=== PATIENT | male | born 1950 | race Caucasian/White ===

== ENCOUNTER → 2017-08-18 | Outpatient (CLI) | payer MEDICARE, BC | LOC: COL.VAS 11:50 | DX: Z01.818 Encounter for other preprocedural examination (principal); N18.4 Chronic kidney disease, stage 4 (severe) | CPT/HCPCS: G0365 ==

== ENCOUNTER → 2018-03-09 | Outpatient (CLI) | payer MEDICARE, BC | LOC: COL.VAS 08:39 | DX: Z01.818 Encounter for other preprocedural examination (principal); N18.5 Chronic kidney disease, stage 5; I34.0 Nonrheumatic mitral (valve) insufficiency ==

== ENCOUNTER → 2018-08-20 | Outpatient (CLI) | payer MEDICARE, BC | LOC: COL.VAS 09:01 | DX: Z01.810 Encounter for preprocedural cardiovascular examination (principal); N18.6 End stage renal disease; I34.0 Nonrheumatic mitral (valve) insufficiency ==

== ENCOUNTER → 2018-10-16 | Outpatient (CLI) | payer MEDICARE, BC ==
[2018-10-16 14:03] LABS: PH 6 (5-8); SQUAMOUS EPITHELIAL 0-2 /hpf; URINE APPEARANCE Clear; URINE BACTERIA Rare /hpf; URINE BILIRUBIN Negative (NEGATIVE); URINE BLOOD 1+ (NEGATIVE); URINE COLOR Straw; URINE GLUCOSE Negative (NEGATIVE); URINE KETONE Negative (NEGATIVE); URINE LEUKOCYTE ESTERASE Negative (NEGATIVE); URINE NITRATE Negative (NEGATIVE); URINE PROTEIN(semi-quant) 2+ (NEGATIVE); URINE RBC 0-2 /hpf; URINE UROBILINOGEN Negative (NEGATIVE); URINE WBC 0-2 /hpf
[2018-10-16 14:16] LABS: COLLECTION METHOD CLEAN CATCH
== END ==
LOC: COL.RAD 13:31
PROVIDERS: Internal Medicine Nephrology
DX: Q61.2 Polycystic kidney, adult type (principal); N18.4 Chronic kidney disease, stage 4 (severe); K66.8 Other specified disorders of peritoneum

== ENCOUNTER 2018-11-29 13:03 | Inpatient (IN) | payer MEDICARE, BC ==
[~2018-11-29] VITALS: Ht 182.9 cm; Wt 84.9 kg
[2018-11-29] MEDS ORDERED: CARDIZEM CD 18180 MG PO (13:42)
[2018-11-29] MEDS ORDERED: ACCUPRIL5MGTAB PO (13:43)
[2018-11-29] MEDS ORDERED: MULTI VITAMINS1 TAB PO (13:45)
[2018-11-29] MEDS ORDERED: EPA FISH OIL1 SGL PO (13:46)
[2018-11-29] MEDS ORDERED: SODIUM BICARBO650 MG PO (13:46)
[2018-11-29 13:47] LABS: BASO # 0.1 (0.0-0.2); EOS # 0.2 (0.0-0.7); EOS % 3.1 % (0-4.0); GRAN # 4.3 (1.4-6.5); GRAN % 64.9 % (42.2-75.2); LYMPH # 1.5 (1.2-3.4); LYMPH % 21.9 % (20.0-51.0); MEAN CELL VOLUME 100 fl (80.0-100.0); MEAN CORPUSCULAR HGB CONC 32 g/dl (33.0-37.0); MEAN PLATELET VOLUME 9.8 fl (7.4-10.4); MONO # 0.6 (0.1-0.6); MONO % 8.8 % (1.7-9.3); PLATELET COUNT 240 K/mm3 (130-400); RED BLOOD COUNT 2.93 M/mm3 (4.20-5.60); REDCELL DISTRIBUTION WIDTH-CV 13.9 % (11.5-14.5)
[2018-11-29] MEDS ORDERED: PRAVACHOL 40MG40 MG PO (13:47)
[2018-11-29 13:48] LABS: HEMATOCRIT 29.3 % (42.0-52.0); HEMOGLOBIN 9.4 g/dl (13.5-18.0); MEAN CORPUSCULAR HEMOGLOBIN 32 pg (27.0-31.0)
[2018-11-29] MEDS ORDERED: ASPI325T6 PO (13:48)
[2018-11-29] MEDS ORDERED: VITAMIN D31000 I1 PO (13:49)
[2018-11-29] MEDS ORDERED: ZANTAC 150MG T150 MG PO (13:50)
[2018-11-29] MEDS ORDERED: TYLENOL 500MG500 MG PO ×2 (13:50→13:51)
[2018-11-29] MEDS ORDERED: STOOL SOFTENER100 M2 PO (13:52)
[2018-11-29] MEDS ORDERED: SENNA-LAX8.6 MG PO (13:53)
[2018-11-29 13:54] LABS: ALBUMIN 4.4 gm/dL (3.5-5.0); BILIRUBIN,TOTAL 0.3 mg/dL (0.0-1.0); CALCIUM 9.4 mg/dL (8.4-10.2); POTASSIUM 4.7 mmol/L (3.4-5.0); TOTAL PROTEIN 7.5 gm/dL (6.4-8.2)
[2018-11-29 14:02] LABS: CREATININE, serum 8.01 (0.66-1.25)
[2018-11-29] MEDS ORDERED: PREDNISONE20 MG PO (14:06)
--- NOTE | 2018-11-29 16:26 | NUR ---
Pt arrives to medical unit rm 314 from ED via WC accompanied by SARAVANAN Jordan. Pt awake and alert, ambulates in room with steady gait. Left side of tongue with edema, pt reports is much less than this morning. Saline lock IV to right AC without s/s of complications. AV Fistula to left forearm with strong thrill. POC reviewed with pt. Call light in reach.
[2018-11-29 16:44] VITALS: BP 186/109; PULSE 98; TEMP 98.6
[2018-11-29 19:34] VITALS: BP 178/92; PULSE 96; TEMP 98.5
--- NOTE | 2018-11-29 19:58 | NUR ---
PT IN BED WITH HOB ELEVATED TO 30 DEGREE ANGLE, DENIES PAIN OR DISCOMFORT, NO EDEMA NOTICED TO FACE, TONGUE, OR NECK. PT VERY TALKATIVE AND STATES THAT MAINLY IT WAS HIS LEFT SIDE OF TONGUE THAT WAS HUGE, BUT FEELS SO MUCH BETTER NOW. NO NEEDS AT THIS TIME, CALL LIGHT WITHIN REACH.
[2018-11-29 23:31] VITALS: BP 176/97; PULSE 81; TEMP 97.9
[2018-11-30 03:33] VITALS: BP 146/91; PULSE 72; TEMP 98.1
--- NOTE | 2018-11-30 03:51 | NUR ---
PT RESTING IN BED. PT DENIES ANY C/O PAIN OR DISCOMFORT. PT HAS NO FACIAL, TONGUE, OR NECK EDEMA. PT ADVISES THAT HE STILL FEELS FINE AND CAN TALK AND SWOLLOW WITH NO DIFFICULTIES. PT'S BP WAS 176/97, GAVE APRESOLINE 25 MG PO AT 0042. BP NOW 146/91. PT WAS CONCERNED ABOUT WHAT BP MEDICATION HE WOULD TAKE TO CONTROL HIS BP. ADVISED THAT DR. PATRICK WILL REVIEW IT IN THE MORNING AND GO OVER IT WITH HIM. NO OTHER CONCERNS AT THIS TIME. CALL LIGHT WITHIN REACH.
[2018-11-30 06:00] LABS: GRAN # 3.9 (1.4-6.5); GRAN % 85.9 % (42.2-75.2); LYMPH # 0.6 (1.2-3.4); LYMPH % 12.8 % (20.0-51.0); MEAN CELL VOLUME 100 fl (80.0-100.0); MEAN CORPUSCULAR HGB CONC 32 g/dl (33.0-37.0); MEAN PLATELET VOLUME 9.8 fl (7.4-10.4); MONO # 0.1 (0.1-0.6); MONO % 1.1 % (1.7-9.3); PLATELET COUNT 216 K/mm3 (130-400); REDCELL DISTRIBUTION WIDTH-CV 13.9 % (11.5-14.5)
[2018-11-30 06:01] LABS: HEMATOCRIT 26.9 % (42.0-52.0); HEMOGLOBIN 8.6 g/dl (13.5-18.0); MEAN CORPUSCULAR HEMOGLOBIN 32 pg (27.0-31.0)
[2018-11-30 06:19] LABS: ALBUMIN 4.2 gm/dL (3.5-5.0); CALCIUM 9.3 mg/dL (8.4-10.2); POTASSIUM 5.2 mmol/L (3.4-5.0)
[2018-11-30 06:22] LABS: CREATININE, serum 8.36 (0.66-1.25)
[2018-11-30 08:16] VITALS: BP 155/83; PULSE 82; TEMP 98.2
--- NOTE | 2018-11-30 08:30 | NUR ---
Report received from SARAVANAN Faith. Patient sitting in chair and already ate breakfast. IV patent. Vitals within normal limits. Patient stated concerns about a new blood pressure medication. Informed that Dr Noonan would be in around 11 to see him. Denied any other needs at this time. Call light within reach.
--- NOTE | 2018-11-30 10:32 | NUR ---
SW met with patient to discuss discharge planning. Patient lives independently at home. Patient's PCP is Dr Leung and he obtains prescriptions from [facility] [place]. Patient is independent with all ADLs. Patient does have a DPOA-HC and SW requested a copy from Dr Leung's office. JORDAN does not anticipate any discharge needs.
--- NOTE | 2018-11-30 10:43 | NUR ---
Initial visit; Patient thanked Bundle Tier And Labeler for looking in on him and wishing him well.
[2018-11-30 10:58] VITALS: BP 176/104; PULSE 77; TEMP 98.6
[2018-11-30] MEDS ORDERED: MEDROL 4MG DOSPA4 MG PO ×2 (12:23→12:57)
[2018-11-30 12:41] VITALS: BP 173/95; PULSE 79
[2018-11-30] MEDS ORDERED: SODIUM BICARBO650 MG PO (12:56)
[2018-11-30] MEDS ORDERED: HYTRIN 1MG C1 MG/CAP PO (12:56)
--- NOTE | 2018-11-30 13:00 | NUR ---
Patient's blood pressure was 176/104 at 1100. Was given hydralazine per orders. At 1241, blood pressure was rechecked and was 173/95.
--- NOTE | 2018-11-30 14:25 | NUR ---
Patient was given discharge information. IV taken out, tip in tact. Tele was removed. Medications were verified with pharmacy for patient to pecan picker. No questions or concerns. Patient escorted out by nursing staff.
== END 2018-11-30 14:20 | disposition home or self-care (01) | DRG 916 ==
LOC: COL.ER 13:03 → MEDICAL 14:33
PROVIDERS: Family Medicine; ADMIT Internal Medicine Nephrology
DX: T78.3XXA Angioneurotic edema, initial encounter (principal); I12.0 Hypertensive chronic kidney disease with stage 5 chronic kidney disease or end stage renal disease; N18.5 Chronic kidney disease, stage 5; E87.2 Acidosis; N13.8 Other obstructive and reflux uropathy; Q61.3 Polycystic kidney, unspecified; N25.81 Secondary hyperparathyroidism of renal origin; D63.1 Anemia in chronic kidney disease; N40.1 Benign prostatic hyperplasia with lower urinary tract symptoms
CPT/HCPCS: J0171; J1200; J2930; J7030

== ENCOUNTER → 2019-02-17 | Outpatient (CLI) | payer MEDICARE, BC ==
[~2019-02-17] MED LIST: ACCUPRIL5MGTAB PO; ASPI325T6 PO; CARDIZEM CD 18180 MG PO; EPA FISH OIL1 SGL PO; HYTRIN 1MG C1 MG/CAP PO; MEDROL 4MG DOSPA4 MG PO; MULTI VITAMINS1 TAB PO; PRAVACHOL 40MG40 MG PO; PREDNISONE20 MG PO; SENNA-LAX8.6 MG PO; SODIUM BICARBO650 MG PO; STOOL SOFTENER100 M2 PO; TYLENOL 500MG500 MG PO; VITAMIN D31000 I1 PO; ZANTAC 150MG T150 MG PO
== END ==
LOC: COL.VAS 08:34
DX: Z01.818 Encounter for other preprocedural examination (principal); I51.7 Cardiomegaly; I34.1 Nonrheumatic mitral (valve) prolapse; N18.6 End stage renal disease

== ENCOUNTER 2019-11-15 05:35 | Inpatient (IN) | payer MEDICARE, BC ==
[2019-11-15] VITALS (9 sets, daily range): BP systolic 139–162; BP diastolic 78–99; PULSE 86–116; TEMP 97.1–98.4
[~2019-11-15] VITALS: Ht 182.9 cm; Wt 78.6 kg
[2019-11-15] MEDS ORDERED: SODIUM BICARBO650 MG PO (08:18)
[2019-11-15] MEDS ORDERED: SENEXON-S 50-81 EACH PO (08:24)
[2019-11-15 08:27] LABS: ALBUMIN 4.1 gm/dL (3.5-5.0); BILIRUBIN,TOTAL 0.4 mg/dL (0.0-1.0); CALCIUM 9.3 mg/dL (8.4-10.2); CREATININE, serum 11.38 (0.66-1.25); POTASSIUM 4.2 mmol/L (3.4-5.0); TOTAL PROTEIN 6.6 gm/dL (6.4-8.2)
[2019-11-15] MEDS ORDERED: ZEMPLAR1 MCG PO (08:30)
[2019-11-15 08:33] LABS: BASO % 0.4 % (0.0-2.0); EOS % 0.3 % (0-4.0); GRAN # 4.9 (1.4-6.5); GRAN % 73.8 % (42.2-75.2); LYMPH # 1.1 (1.2-3.4); LYMPH % 15.8 % (20.0-51.0); MEAN CELL VOLUME 74 fl (80.0-100.0); MEAN CORPUSCULAR HGB CONC 29 g/dl (33.0-37.0); MEAN PLATELET VOLUME 9.6 fl (7.4-10.4); MONO # 0.6 (0.1-0.6); MONO % 8.7 % (1.7-9.3); PLATELET COUNT 311 K/mm3 (130-400); RED BLOOD COUNT 1.75 M/mm3 (4.20-5.60); REDCELL DISTRIBUTION WIDTH-CV 17.9 % (11.5-14.5)
[2019-11-15 08:35] LABS: MEAN CORPUSCULAR HEMOGLOBIN 21 pg (27.0-31.0)
[2019-11-15 08:39] LABS: HEMOGLOBIN 3.7 g/dl (13.5-18.0)
--- NOTE | 2019-11-15 10:37 | NUR ---
SEE MERGE FOR MEDICATION ADMINISTRATION TIMES AND INTRA AND POST SEDATION ASSESSMENTS.
[2019-11-15 11:03] LABS: BASO % 0.3 % (0.0-2.0); EOS % 0.5 % (0-4.0); GRAN # 4.6 (1.4-6.5); GRAN % 72.1 % (42.2-75.2); LYMPH # 1.1 (1.2-3.4); LYMPH % 16.7 % (20.0-51.0); MEAN CELL VOLUME 76 fl (80.0-100.0); MEAN CORPUSCULAR HGB CONC 27 g/dl (33.0-37.0); MONO # 0.6 (0.1-0.6); MONO % 9.9 % (1.7-9.3); PLATELET COUNT 285 K/mm3 (130-400); RED BLOOD COUNT 1.78 M/mm3 (4.20-5.60); REDCELL DISTRIBUTION WIDTH-CV 18.5 % (11.5-14.5)
[2019-11-15 11:04] LABS: MEAN CORPUSCULAR HEMOGLOBIN 21 pg (27.0-31.0)
[2019-11-15 11:06] LABS: HEMATOCRIT 13.5 % (42.0-52.0); HEMOGLOBIN 3.7 g/dl (13.5-18.0)
--- NOTE | 2019-11-15 11:39 | NUR ---
pt transported by floor bed from lab intern to room 358 by red small rn and booker ruiz brick grader. pt is asleep, but arousable by name. Cassandra anthony rn came in for bedside report. cassandra was informed patient has been restless and pulling at the site and to ensure the site is monitored for oozing. site at this time and c/d/i. pt does not appear to be in distress. Alejandra from dialysis notified that the patient has returned from his procedure and will be awaiting dialysis.
[2019-11-15 17:01] LABS: RETIC % 2.7 % (0.5-3.52)
[2019-11-15 17:12] LABS: IRON,SERUM 85 ug/dL (35-150); LACTATE DEHYDROGENASE 694 U/L (313-618)
[2019-11-15 17:15] LABS: RETIC # 0.08 M/mm3 (0.02-0.16)
[2019-11-15 17:24] LABS: IRON,SERUM 85 ug/dL (35-150)
[2019-11-15 17:34] LABS: TOTAL IRON BINDING CAPACITY 464 ug/dL (261-462)
--- NOTE | 2019-11-15 19:24 | NUR ---
Pt direct admit this morning, initial assessments completed this AM, attempted to start IV for dialysis catheter placement two times without success, contacted charge nurse for assistance, charge nurse attempted without success, malthouse laborer attempted without success. Contacted [facility] for placement, [facility] was also unable to place an IV, provider contacted about issue. Pt received dialysis this afternoon after catheter placement, during dialysis 3 units of LRPRBC was transfused.
[2019-11-15 22:42] LABS: HEPATITIS B SURFACE ANTIBODY 169.3 (()); HEPATITIS B SURFACE ANTIGEN Negative (Negative); HEPATITIS C VIRUS ANTIBODY Negative (Negative)
[2019-11-15 23:05] LABS: HEMATOCRIT 25.7 % (42.0-52.0); HEMOGLOBIN 7.7 g/dl (13.5-18.0)
[2019-11-16] VITALS (12 sets, daily range): BP systolic 80–136; BP diastolic 52–93; PULSE 77–116; TEMP 97.1–99.6
[2019-11-16 08:38] LABS: BASO # 0.1 (0.0-0.2); BASO % 0.7 % (0.0-2.0); EOS # 0.1 (0.0-0.7); EOS % 0.7 % (0-4.0); GRAN # 5.2 (1.4-6.5); GRAN % 68.6 % (42.2-75.2); LYMPH # 1.2 (1.2-3.4); LYMPH % 16.3 % (20.0-51.0); MEAN CELL VOLUME 79 fl (80.0-100.0); MEAN CORPUSCULAR HGB CONC 31 g/dl (33.0-37.0); MEAN PLATELET VOLUME 9.3 fl (7.4-10.4); MONO % 13.3 % (1.7-9.3); PLATELET COUNT 269 K/mm3 (130-400); RED BLOOD COUNT 2.78 M/mm3 (4.20-5.60); REDCELL DISTRIBUTION WIDTH-CV 18.2 % (11.5-14.5)
[2019-11-16 08:45] LABS: ALBUMIN 3.9 gm/dL (3.5-5.0); CALCIUM 8.9 mg/dL (8.4-10.2); CREATININE, serum 7.79 (0.66-1.25); PHOSPHOROUS 4.2 mg/dL (2.5-4.5); POTASSIUM 4.5 mmol/L (3.4-5.0)
[2019-11-16 08:48] LABS: HEMATOCRIT 21.9 % (42.0-52.0); HEMOGLOBIN 6.8 g/dl (13.5-18.0); MEAN CORPUSCULAR HEMOGLOBIN 24 pg (27.0-31.0)
--- NOTE | 2019-11-16 09:12 | NUR ---
Assessment completed, alert/oriented, vital signs stable, denies pain or discomfort, heart RRR, lungs CTA, new right IJ tunnedle dialysis cath site looks good and dressing is C/D/I, patient is NPO for fistual Ligation later today, we have taken patient to dialysis around 0815, I have notified Nephrology nurse of patient hemaglobin of 6.8 this morning and that he still does not have IV access ( is aware)
--- NOTE | 2019-11-16 14:30 | NUR ---
patient arrived back to room 358 from PACU, he is moderately sedated but is arousable, he is snoring and o2 sats 88% on room air, applied O2 via mask and sats now 98-100%, blood pressures are soft but stable, will continue to monitor
--- NOTE | 2019-11-16 14:53 | NUR ---
JORDAN met with the patient to discuss discharge plan. The patient lives alone in [place]. He reports independence with ADLs and does not have any DME. The patient's PCP is Dr. Cristopher Coe and he receives his medications at [facility]. He reports no difficulties obtaining his meds. The patient does not have advanced directives in EMR, but he reports that he does have them completed and that Dr. Coe's office should have a copy of them. He states that his sister, Horacio Osorio (ph#[phone]), is his DPOA-HC. Horacio lives in [place]. JORDAN attempted to contact Dr. Coe's office to request a copy of his advanced directives. JORDAN left them a voicemail. The patient plans to return home upon discharge. SW to continue to follow as needed.
[2019-11-16 16:16] LABS: BASO % 0.4 % (0.0-2.0); EOS % 0.1 % (0-4.0); GRAN # 6.2 (1.4-6.5); GRAN % 78.5 % (42.2-75.2); LYMPH # 0.8 (1.2-3.4); LYMPH % 9.8 % (20.0-51.0); MEAN CELL VOLUME 80 fl (80.0-100.0); MEAN CORPUSCULAR HGB CONC 31 g/dl (33.0-37.0); MEAN PLATELET VOLUME 9.7 fl (7.4-10.4); MONO # 0.8 (0.1-0.6); MONO % 10.3 % (1.7-9.3); PLATELET COUNT 244 K/mm3 (130-400); RED BLOOD COUNT 2.73 M/mm3 (4.20-5.60); REDCELL DISTRIBUTION WIDTH-CV 18.5 % (11.5-14.5)
[2019-11-16 16:19] LABS: HEMATOCRIT 21.8 % (42.0-52.0); HEMOGLOBIN 6.7 g/dl (13.5-18.0); MEAN CORPUSCULAR HEMOGLOBIN 25 pg (27.0-31.0)
[2019-11-16 16:41] LABS: HAPTOGLOBIN 198 mg/dL (40-268); TRANSFERRIN 418 mg/dL (163-344)
--- NOTE | 2019-11-16 17:00 | NUR ---
patient is awake and alert now, vital signs stable, blood pressures have recovered and SBP now 100's, denies pain, denies needs
[2019-11-17] VITALS (10 sets, daily range): BP systolic 98–130; BP diastolic 62–82; PULSE 82–95; TEMP 97.7–98.6
--- NOTE | 2019-11-17 05:58 | NUR ---
patient has slept through the night. patient keeps asking when he will be able to go home. this nurse told the patient to talk to dr silvestre in the morning when he rounds. this nurse also educated patient that his hgb was low and so we are monitoring that. patient has denied any pain. patient denies any other needs at this time. will report off to day shift.
--- NOTE | 2019-11-17 08:40 | NUR ---
Assessment completed, alert/oriented, vital signs stable, denies pain or disocmfort, labs pending, patient really wants to go home, I have discussed plan of care with Nephrology nurse, patient eating breakfast, denies needs
[2019-11-17 10:16] LABS: BASO % 0.5 % (0.0-2.0); EOS % 0.5 % (0-4.0); GRAN # 5.6 (1.4-6.5); GRAN % 67.6 % (42.2-75.2); LYMPH # 1.6 (1.2-3.4); LYMPH % 19.2 % (20.0-51.0); MEAN CELL VOLUME 82 fl (80.0-100.0); MEAN CORPUSCULAR HGB CONC 30 g/dl (33.0-37.0); MEAN PLATELET VOLUME 9.9 fl (7.4-10.4); MONO % 11.6 % (1.7-9.3); PLATELET COUNT 268 K/mm3 (130-400); RED BLOOD COUNT 2.82 M/mm3 (4.20-5.60); REDCELL DISTRIBUTION WIDTH-CV 19.1 % (11.5-14.5)
[2019-11-17 10:21] LABS: MEAN CORPUSCULAR HEMOGLOBIN 25 pg (27.0-31.0)
[2019-11-17 11:00] LABS: ALBUMIN 3.8 gm/dL (3.5-5.0); CALCIUM 8.9 mg/dL (8.4-10.2); CREATININE, serum 7.36 (0.66-1.25); PHOSPHOROUS 3.4 mg/dL (2.5-4.5); POTASSIUM 4.1 mmol/L (3.4-5.0)
--- NOTE | 2019-11-17 11:24 | NUR ---
First visit from the tool design draftsperson. No needs right now.
--- NOTE | 2019-11-17 19:35 | NUR ---
Discharge instructions reviewed with the patient, instructed to follow up as scheudled, dialysis as ordered, stool occult as ordered, IV removed, tolerated blood transfusion well, VS stable, I escorted him out to his vehicle by wheelchair
== END 2019-11-17 18:30 | disposition home or self-care (01) | DRG 674 ==
LOC: COL.CAR 05:35 → MEDICAL 06:15 → COL.CAR 09:25 → MEDICAL 09:26
PROVIDERS: Surgery; ADMIT Internal Medicine Nephrology
PROC: 0JH60XZ Insertion of Tunneled Vascular Access Device into Chest Subcutaneous Tissue and Fascia, Open Approach (ICD-10-PCS; 2019-11-15)
PROC: 5A1D70Z Performance of Urinary Filtration, Intermittent, Less than 6 Hours Per Day (ICD-10-PCS; 2019-11-15)
PROC: 02H633Z Insertion of Infusion Device into Right Atrium, Percutaneous Approach (ICD-10-PCS; 2019-11-15)
PROC: 05LY0ZZ Occlusion of Upper Vein, Open Approach (ICD-10-PCS; principal; 2019-11-16 14:15)
DX: N18.6 End stage renal disease (principal); Q61.3 Polycystic kidney, unspecified; N13.8 Other obstructive and reflux uropathy; E44.0 Moderate protein-calorie malnutrition; I15.1 Hypertension secondary to other renal disorders; E78.5 Hyperlipidemia, unspecified; K21.9 Gastro-esophageal reflux disease without esophagitis; N40.1 Benign prostatic hyperplasia with lower urinary tract symptoms; D75.1 Secondary polycythemia; M19.90 Unspecified osteoarthritis, unspecified site; E21.3 Hyperparathyroidism, unspecified; K59.09 Other constipation; D63.1 Anemia in chronic kidney disease; Z79.82 Long term (current) use of aspirin; Z79.1 Long term (current) use of non-steroidal anti-inflammatories (NSAID)
CPT/HCPCS: C1769; C1892; J0690; J1644; J1885; J2405; J2704; J2916; J7030; P9016; Q5105; Q9967

== ENCOUNTER → 2020-02-03 | Outpatient (CLI) | payer MEDICARE, BC ==
[~2020-02-03] VITALS: Ht 182.9 cm; Wt 79.2 kg
[~2020-02-03] MED LIST changes: +ASPIRIN E.C. 8181 MG PO; +MASON NATURAL S1 CAP PO; -MULTI VITAMINS1 TAB PO; +PRILOSEC 20MG20 MG PO; +SENEXON-S 50-81 EACH PO; +TOPROL XL 25MG25 MG PO; +TUMS ULTRA ST1000 MG PO; +ZEMPLAR1 MCG PO
[2020-02-03 10:02] VITALS: BP 122/75; PULSE 54
[2020-02-03 10:30] VITALS: BP 134/85; PULSE 70
== END ==
LOC: COL.RAD 12:00
DX: N18.6 End stage renal disease (principal); Z99.2 Dependence on renal dialysis

== ENCOUNTER 2021-06-04 09:45 | Emergency (ER) | payer MEDICARE, BC ==
[~2021-06-04] VITALS: Ht 180.3 cm; Wt 83.2 kg
[2021-06-04 09:48] VITALS: TEMP 101.9
[2021-06-04 10:32] LABS: COLLECTION METHOD CLEAN CATCH
[2021-06-04 10:42] LABS: HEMOGLOBIN 12.8 g/dl (13.5-18.0); MEAN CELL VOLUME 91 fl (80.0-100.0); MEAN CORPUSCULAR HEMOGLOBIN 32 pg (27-31); MEAN CORPUSCULAR HGB CONC 35 g/dl (33.0-37.0); MEAN PLATELET VOLUME 9.6 fl (7.4-10.4); PLATELET COUNT 97 K/mm3 (130-400); REDCELL DISTRIBUTION WIDTH-CV 12.3 % (11.5-14.5)
[2021-06-04 10:47] LABS: HEMATOCRIT 36.5 % (42.0-52.0)
[2021-06-04 10:53] LABS: AMORPHOUS CRYSTAL Present (NOT PRESENT); PH 5 (5-8); SQUAMOUS EPITHELIAL 0-2 /hpf (0-10); URINE APPEARANCE Cloudy (CLEAR/HAZY); URINE BACTERIA Rare /hpf (NONE SEEN); URINE BILIRUBIN Negative (NEGATIVE); URINE BLOOD 2+ (NEGATIVE); URINE COLOR Amber (YELLOW); URINE GLUCOSE Negative (NEGATIVE); URINE KETONE Trace (NEGATIVE); URINE LEUKOCYTE ESTERASE Negative (NEGATIVE); URINE NITRATE Negative (NEGATIVE); URINE PROTEIN(semi-quant) 2+ (NEGATIVE); URINE RBC 0-2 /hpf (0-2); URINE UROBILINOGEN Negative (NEGATIVE)
[2021-06-04 11:06] LABS: BAND 17 % (0-10); LYMPHOCYTE 7 % (20.0-51.0); NEUTROPHILS 75 % (42.0-75.2); OVALOCYTES 1+; PLATELET ESTIMATE DECREASED (NORMAL)
[2021-06-04 11:15] LABS: TROPONIN-I 0.316 ng/mL (0.00-0.033)
[2021-06-04 11:30] LABS: ALBUMIN 3.1 gm/dL (3.4-4.8); BILIRUBIN,TOTAL 0.9 mg/dL (0.2-1.2); CALCIUM 8.4 mg/dL (8.4-10.2); CREATININE, serum 6.38 mg/dL (0.72-1.25); POTASSIUM 4.6 mmol/L (3.5-4.5); TOTAL PROTEIN 5.8 gm/dL (6.2-8.1)
[2021-06-04 15:21] VITALS: BP 127/91; PULSE 90
== END 2021-06-04 15:27 | disposition short-term general hospital (02) ==
LOC: COL.ER 09:45
PROVIDERS: Emergency Medicine
DX: D72.819 Decreased white blood cell count, unspecified (principal); R31.9 Hematuria, unspecified; R79.89 Other specified abnormal findings of blood chemistry; I12.9 Hypertensive chronic kidney disease with stage 1 through stage 4 chronic kidney disease, or unspecified chronic kidney disease; N18.9 Chronic kidney disease, unspecified; Z94.0 Kidney transplant status; Z20.822 Contact with and (suspected) exposure to COVID-19; Z79.899 Other long term (current) drug therapy
CPT/HCPCS: J2543; J3370; J7050

== ENCOUNTER 2022-06-06 10:59 | Day surgery (SDC) | payer MEDICARE, BC ==
[~2022-06-06] VITALS: Ht 180.3 cm; Wt 78.4 kg
[2022-06-06] VITALS (7 sets, daily range): BP systolic 106–128; BP diastolic 65–81; PULSE 51–63; TEMP 97.3
[2022-06-06] MEDS ORDERED: PROGRAF 0.5MG0.5 MG PO (11:30)
[2022-06-06] MEDS ORDERED: NOXAFILTAB PO (11:31)
[2022-06-06] MEDS ORDERED: PREDNISONE 5MG5 MG PO (11:31)
[2022-06-06] MEDS ORDERED: FLOMAX 0.40.4 MG/CAP PO (11:33)
[2022-06-06] MEDS ORDERED: EYE PROMISE RESTORE PO (11:34)
[2022-06-06] MEDS ORDERED: NORVASC 5MG5 MG/TAB PO (11:35)
[2022-06-06] MEDS ORDERED: VITAMIN B-6100 MG (11:36)
[2022-06-06] MEDS ORDERED: CULTURELLE1 EAC1 PO (11:36)
[2022-06-06] MEDS ORDERED: OMNICEF 300MG300 MG PO (11:44)
--- NOTE | 2022-06-06 12:03 | NUR ---
RESTRICTED EXTREMITY BAND PLACED ON L ARM.
--- NOTE | 2022-06-06 12:08 | NUR ---
FLUIDS CHANGED TO NS D/T PT KIDNEY HX; ANES GAVE VO.
--- NOTE | 2022-06-06 16:28 | NUR ---
Patient returns to room 8 per cart from surgery accompanied by Reed Eddy CRNA and Dallin RN. Patient arouses to verbal stimuli. IV fluids infusing. Siderails up x2 and call light in reach. Sister in room. Right foot bulky dressing clean and dry with post op shoe in place. Right foot elevated on folded blankets.
--- NOTE | 2022-06-06 16:43 | NUR ---
Awake and states that he is having right foot pain. Dressing remains clean and dry on the right foot. Post op shoe in place. IV fluids infusing. Rates pain at 10/10.
--- NOTE | 2022-06-06 16:57 | NUR ---
Medicated with Morphine 2mg IV for pain. Encouraged to take deep breaths and relax.
--- NOTE | 2022-06-06 16:58 | NUR ---
Dr. Henry in the room talking with the patient and explaining surgery to patient and sister. More relaxed now while talking with physician.
--- NOTE | 2022-06-06 17:12 | NUR ---
Resting and talking with spouse. States that the pain is 3/10 now. States that the sharp pain is gone and having mild pain only now. Tolerates sips of water.
--- NOTE | 2022-06-06 19:25 | NUR ---
1715 RECEIVED REPORT AND ASSUMED CARE FROM SARAVANAN NEWTON. PT APPROXIMATELY 1 HR S/P L TOE SURGERY, A&O, NAD, VSS ON RA. DRSG (SPLINT, SOFTROLL, ACEWRAP, CAST SHOE CDI. POST OP PAIN CONTROLLED TO TOLERABLE LEVEL, DENIES OTHER COMPLAINT. L FOOT ELEVATED AND ICE OVER SPLINT. DR LESLIE HAS BEEN IN TO TALK WITH PT AND FAMILY - ALL QUESTIONS ANSWERED TO PT/FAMILY SATISFACTION. 1730 PROVIDED TOAST AND APPLESAUCE PER REQUEST - HAS ALREADY BEEN TOLERATING WATER. 1745 PT ASSISTED TO STANDING POSITION TO VOID IN URINAL AT BEDSIDE WITH STANDBY ASSIST. BACK TO BED, TOLERATED WELL, 300ML OUTPUT CLR YELLOW. DENIES COMPLAINT. FAMILY BACK TO BEDSIDE. EXTENSIVE PT ED AND REVIEW (FORGETFUL BUT ORIENTED) THRU OUT CARE. 1820 IV D/C'D, PRINTED DISCHARGE INSTRUCTIONS REVIEWED, HIGHLIGHTED, AND HANDED TO SISTER. ALL QUESTIONS ADDRESSED TO PT SATISFACTION. PT ASSISTED IN GETTING DRESSED. ALREADY HAS F/U APPT WITH SURGEON SCHEDULED FOR NEXT WEEK. PROVIDED URINAL FOR HOME PER REQUEST. CONTINUES TO DEMONSTRATE AND VERBALIZE PAIN CONTROL. A&O, NAD, VSS ON RA. 1845 ASSISTED TO W/C AND TAKEN TO ED EXIT WITH ALL SUPPLIES, BELONGINGS, PAPERWORK IN HAND, SISTER ACCOMPANYING, AND WILL DRIVE PT HOME, REMAINS STABLE NOTED ABOVE. ASSISTED INTO PASSENGER SEAT. DENIES FURTHER NEEDS AT THIS TIME.
== END 2022-06-06 18:45 | disposition home or self-care (01) ==
LOC: SDCO 10:59
DX: M20.11 Hallux valgus (acquired), right foot (principal); M20.41 Other hammer toe(s) (acquired), right foot; M24.574 Contracture, right foot; Q61.2 Polycystic kidney, adult type; I10 Essential (primary) hypertension; I42.9 Cardiomyopathy, unspecified; I25.10 Atherosclerotic heart disease of native coronary artery without angina pectoris; M21.611 Bunion of right foot; K21.9 Gastro-esophageal reflux disease without esophagitis; I48.20 Chronic atrial fibrillation, unspecified; Z94.0 Kidney transplant status; Z79.899 Other long term (current) drug therapy
CPT/HCPCS: C1713; J0690; J1100; J2270; J2704; J3010; J7030; J7120

== ENCOUNTER 2023-01-23 14:22 | Emergency (ER) | payer MEDICARE, BC ==
[~2023-01-23] VITALS: Ht 180.3 cm; Wt 70.9 kg
[~2023-01-23 14:22] MED LIST changes: +AMOXICILLIN 50500 MG PO; +CULTURELLE1 EAC1 PO; +EYE PROMISE RESTORE PO; +FLOMAX 0.40.4 MG/CAP PO; +NORVASC 5MG5 MG/TAB PO; +NOXAFILTAB PO; +OMNICEF 300MG300 MG PO; +PREDNISONE 5MG5 MG PO; +PROGRAF 0.5MG0.5 MG PO; +VITAMIN B-6100 MG
[2023-01-23 14:49] LABS: HEMATOCRIT 43.7 % (42.0-52.0); HEMOGLOBIN 14.3 g/dl (13.5-18.0); MEAN CELL VOLUME 95 fl (80.0-100.0); MEAN CORPUSCULAR HEMOGLOBIN 31 pg (27-31); MEAN CORPUSCULAR HGB CONC 33 g/dl (33.0-37.0); MEAN PLATELET VOLUME 10.9 fl (7.4-10.4); PLATELET COUNT 263 K/mm3 (130-400); RED BLOOD COUNT 4.62 M/mm3 (4.20-5.60); REDCELL DISTRIBUTION WIDTH-CV 14.8 % (11.5-14.5)
[2023-01-23 14:50] VITALS: TEMP 97.8
[2023-01-23 15:05] LABS: ALBUMIN 2.3 gm/dL (3.4-4.8); BILIRUBIN,TOTAL 0.7 mg/dL (0.2-1.2); CALCIUM 9.3 mg/dL (8.4-10.2); CREATININE, serum 3.65 mg/dL (0.72-1.25); TOTAL PROTEIN 6.8 gm/dL (6.2-8.1)
[2023-01-23 15:21] LABS: BAND 30 % (0-10); METAMYELOCYTE 12 % (0-0); MYELOCYTE 1 % (0-0); NEUTROPHILS 55 % (42.0-75.2); PLATELET ESTIMATE NORMAL (NORMAL)
[2023-01-23 15:24] LABS: POTASSIUM 7.1 mmol/L (3.5-4.5)
[2023-01-23 15:26] LABS: TROPONIN-I 0.055 ng/mL (0.00-0.033)
[2023-01-23 15:35] LABS: INR 1.5 (0.8-3.0); PROTHROMBIN TIME 15.8 SECONDS (9.7-12.8)
[2023-01-23 17:26] LABS: CALCIUM 8.8 mg/dL (8.4-10.2); CREATININE, serum 3.42 mg/dL (0.72-1.25); POTASSIUM 5.6 mmol/L (3.5-4.5)
[2023-01-23 19:01] VITALS: BP 136/87; PULSE 92
== END 2023-01-23 19:02 | disposition short-term general hospital (02) ==
LOC: COL.ER 14:22
PROVIDERS: Emergency Medicine; Family Medicine
DX: S06.5XAA Traumatic subdural hemorrhage with loss of consciousness status unknown, initial encounter (principal); S60.211A Contusion of right wrist, initial encounter; N17.9 Acute kidney failure, unspecified; Z28.310 Unvaccinated for COVID-19; W18.30XA Fall on same level, unspecified, initial encounter
CPT/HCPCS: J0612; J0692; J1815; J7030